=== PATIENT | female | born 1945 | race Caucasian/White ===

== ENCOUNTER → 2024-01-19 09:54 | Outpatient (REF) | payer MEDICARE, SELFPAY ==
[2024-01-19 12:58] LABS: ALT (SGPT) 18 U/L (0-35); AST (SGOT) 27 U/L (14-36); Albumin 4.3 g/dl (3.5-5.0); Alkaline Phosphatase 118 U/L (38-126); Blood Urea Nitrogen 21 mg/dl (7-17); Calcium 9.6 mg/dl (8.4-10.2); Carbon Dioxide 30 mmol/L (22-30); Chloride 101 mmol/L (98-107); Glucose 91 mg/dl (70-99); Potassium 3.7 mmol/L (3.5-5.1); Sodium 138 mmol/L (135-145); Total Bilirubin 0.5 mg/dl (0.2-1.3); Total Protein 7.3 g/dl (6.3-8.2); eGFR > 60.00
[2024-01-19 13:16] LABS: Free T4 1.07 ng/dl (0.78-2.19)
[2024-01-19 13:30] LABS: TSH 1.37 uIU/ml (0.47-4.68)
== END ==
LOC: HWLAB 09:54
PROVIDERS: ATTENDING PHYSICIAN Internal Medicine Endocrinology, Diabetes & Metabolism; FAMILY PHYSICIAN Internal Medicine
DX: E03.9 Hypothyroidism, unspecified (principal); M85.80 Other specified disorders of bone density and structure, unspecified site
CPT/HCPCS: 36415; 80053; 84439; 84443

== ENCOUNTER → 2024-04-28 08:28 | Outpatient (REF) | payer MEDICARE, SELFPAY ==
[2024-04-28 12:49] LABS: % Basophils 1.1 % (0-2); % Eosinophils 2.5 % (0-6); % Immature Granulocytes 0.2 % (0-0.5); % Lymphocytes 41.8 % (20.5-51.1); % Monocytes 6.8 % (1.7-9.3); % Neutrophils 47.6 % (42.2-75.2); Absolute Basophils 0.1 10^3/uL (0-0.2); Absolute Eosinophils 0.1 10^3/uL (0-0.7); Absolute Lymphocytes 2.4 10^3/uL (1.2-3.4); Absolute Monocytes 0.4 10^3/uL (0.1-0.6); Absolute Neutrophils 2.7 10^3/uL (1.4-6.5); Hematocrit 38.9 % (37.0-47.0); Mean Corp Hgb Conc. 33.4 g/dL (33.0-37.0); Mean Corpuscular Hgb 31.7 pg (27.0-31.0); Mean Corpuscular Volume 94.9 fL (81.0-99.0); Mean Platelet Volume 10.8 fL (7.4-10.4); Nucleated Red Blood Cells % 0 %; Platelet Count 320 10^3/uL (130-400); Red Cell Dist. Width 13.2 % (11.5-14.5); Urine Albumin Negative (Neg - Trace); Urine Bilirubin Negative (Negative); Urine Character Clear (Clear); Urine Color Yellow; Urine Glucose Negative (Negative); Urine Ketone Negative (Negative); Urine Leukocyte Trace (Negative); Urine Nitrite Negative (Negative); Urine Occult Blood Negative (Negative); Urine Urobilinogen Negative (Neg - 1+); White Blood Cell Count 5.7 10^3/uL (4.8-10.8)
[2024-04-28 13:18] LABS: ALT (SGPT) 19 U/L (0-35); AST (SGOT) 29 U/L (14-36); Albumin 4.4 g/dl (3.5-5.0); Alkaline Phosphatase 114 U/L (38-126); Blood Urea Nitrogen 23 mg/dl (7-17); Calcium 9.7 mg/dl (8.4-10.2); Carbon Dioxide 33 mmol/L (22-30); Chloride 100 mmol/L (98-107); Glucose 93 mg/dl (70-99); HDL Cholesterol 103 mg/dl; LDL Cholesterol, Calculated 112 mg/dl; Potassium 3.8 mmol/L (3.5-5.1); Sodium 141 mmol/L (135-145); Total Bilirubin 0.6 mg/dl (0.2-1.3); Total Cholesterol 227 mg/dl (50-199); Total Protein 7.4 g/dl (6.3-8.2); Triglyceride 64 mg/dl (10-149); Very Low Density Lipoprotein 12 mg/dl (0-30); eGFR > 60.00
[2024-04-28 13:23] LABS: Urine Squamous Cell 21-25 /LPF (Few)
[2024-04-28 13:24] LABS: Urine Bacteria Few (Negative); Urine Red Blood Cell 0-2 /HPF (0-2); Urine White Cell 0-2 /HPF (0-5)
[2024-04-28 13:48] LABS: TSH Reflex To Free T4 1.34 uIU/ml (0.47-4.68)
== END ==
LOC: HWLAB 08:28
PROVIDERS: ATTENDING PHYSICIAN Internal Medicine
DX: I10 Essential (primary) hypertension (principal); Z00.00 Encounter for general adult medical examination without abnormal findings; E78.2 Mixed hyperlipidemia; E03.9 Hypothyroidism, unspecified
CPT/HCPCS: 36415; 80053; 80061; 81003; 81015; 84443; 85025

== ENCOUNTER → 2024-08-02 01:00 | Outpatient (REF) | payer MEDICARE, SELFPAY ==
[2024-08-02 15:18] LABS: % Basophils 0.7 % (0-2); % Eosinophils 1.3 % (0-6); % Immature Granulocytes 0.1 % (0-0.5); % Lymphocytes 34.2 % (20.5-51.1); % Monocytes 5.4 % (1.7-9.3); % Neutrophils 58.3 % (42.2-75.2); Absolute Basophils 0.1 10^3/uL (0-0.2); Absolute Eosinophils 0.1 10^3/uL (0-0.7); Absolute Lymphocytes 2.6 10^3/uL (1.2-3.4); Absolute Monocytes 0.4 10^3/uL (0.1-0.6); Absolute Neutrophils 4.4 10^3/uL (1.4-6.5); Hematocrit 41.4 % (37.0-47.0); Hemoglobin 14.2 g/dL (12.0-16.0); Mean Corp Hgb Conc. 34.3 g/dL (33.0-37.0); Mean Corpuscular Hgb 33.3 pg (27.0-31.0); Mean Platelet Volume 10.9 fL (7.4-10.4); Nucleated Red Blood Cells % 0 %; Platelet Count 311 10^3/uL (130-400); Red Blood Cell Count 4.27 10^6/uL (4.20-5.40); Red Cell Dist. Width 13.1 % (11.5-14.5); White Blood Cell Count 7.6 10^3/uL (4.8-10.8)
[2024-08-02 15:34] LABS: Urine Albumin Negative (Neg - Trace); Urine Bilirubin Negative (Negative); Urine Character Clear (Clear); Urine Color Yellow; Urine Glucose Negative (Negative); Urine Ketone Negative (Negative); Urine Leukocyte Negative (Negative); Urine Nitrite Negative (Negative); Urine Occult Blood Negative (Negative); Urine Urobilinogen Negative (Neg - 1+)
[2024-08-02 16:00] LABS: ALT (SGPT) 20 U/L (0-35); AST (SGOT) 27 U/L (14-36); Albumin 4.6 g/dl (3.5-5.0); Alkaline Phosphatase 112 U/L (38-126); Blood Urea Nitrogen 23 mg/dl (7-17); Calcium 9.8 mg/dl (8.4-10.2); Carbon Dioxide 36 mmol/L (22-30); Chloride 95 mmol/L (98-107); Glucose 72 mg/dl (70-99); Magnesium 2.3 mg/dl (1.6-2.3); Phosphorus 4.2 mg/dl (2.5-4.5); Potassium 4.1 mmol/L (3.5-5.1); Sodium 142 mmol/L (135-145); Total Bilirubin 0.5 mg/dl (0.2-1.3); Total Protein 7.4 g/dl (6.3-8.2); Uric Acid 3.4 mg/dl (2.5-6.2); eGFR > 60.00
[2024-08-02 16:03] LABS: Protein/creatinine Ratio 0.2; Urine Protein 11 mg/dl
[2024-08-02 16:16] LABS: Vitamin D, 25-OH*** 36.1 ng/mL (30-80)
[2024-08-04 12:13] LABS: Intact PTH 49.2 pg/ml (13.6-85.8)
== END ==
LOC: REG 01:00
PROVIDERS: ATTENDING PHYSICIAN Internal Medicine Nephrology; FAMILY PHYSICIAN Internal Medicine; REFERRING PHYSICIAN Urology
DX: N20.0 Calculus of kidney (principal); N25.81 Secondary hyperparathyroidism of renal origin; E55.9 Vitamin D deficiency, unspecified
CPT/HCPCS: 36415; 80053; 81003; 82306; 82570; 83735; 83970; 84100; 84156; 84550; 85025

== ENCOUNTER → 2024-09-21 13:42 | Outpatient (REF) | payer MEDICARE, SELFPAY | LOC: HWRAD 13:42 | PROVIDERS: ATTENDING PHYSICIAN Physician Assistant; FAMILY PHYSICIAN Internal Medicine | DX: M25.551 Pain in right hip (principal); M54.9 Dorsalgia, unspecified; M79.606 Pain in leg, unspecified; M79.661 Pain in right lower leg | CPT/HCPCS: 72114; 73523; 73552 ==

== ENCOUNTER → 2025-02-01 08:56 | Outpatient (REF) | payer MEDICARE, SELFPAY ==
[2025-02-01 13:03] LABS: ALT (SGPT) 18 U/L (0-35); AST (SGOT) 26 U/L (14-36); Albumin 4.6 g/dl (3.5-5.0); Alkaline Phosphatase 118 U/L (38-126); Blood Urea Nitrogen 19 mg/dl (7-17); Calcium 9.7 mg/dl (8.4-10.2); Carbon Dioxide 32 mmol/L (22-30); Chloride 101 mmol/L (98-107); Glucose 86 mg/dl (70-99); Potassium 3.7 mmol/L (3.5-5.1); Sodium 142 mmol/L (135-145); Total Bilirubin 0.6 mg/dl (0.2-1.3); Total Protein 7.5 g/dl (6.3-8.2); eGFR > 60.00
[2025-02-01 13:11] LABS: Intact PTH 66.9 pg/ml (13.6-85.8)
[2025-02-01 13:29] LABS: TSH 2.35 uIU/ml (0.47-4.68)
== END ==
LOC: HWLAB 08:56
PROVIDERS: ATTENDING PHYSICIAN Internal Medicine Endocrinology, Diabetes & Metabolism; FAMILY PHYSICIAN Internal Medicine
DX: E03.9 Hypothyroidism, unspecified (principal); M85.80 Other specified disorders of bone density and structure, unspecified site
CPT/HCPCS: 36415; 80053; 83970; 84439; 84443

== ENCOUNTER → 2025-05-12 08:39 | Outpatient (REF) | payer MEDICARE, SELFPAY ==
[2025-05-12 12:33] LABS: Hematocrit 40.2 % (37.0-47.0); Hemoglobin 13.2 g/dL (12.0-16.0); Mean Corp Hgb Conc. 32.8 g/dL (33.0-37.0); Mean Corpuscular Volume 94.8 fL (81.0-99.0); Nucleated Red Blood Cells % 0 %; Platelet Count 373 10^3/uL (130-400); Red Cell Dist. Width 13.1 % (11.5-14.5)
[2025-05-12 12:38] LABS: Urine Character Clear (Clear)
[2025-05-12 12:41] LABS: ALT (SGPT) 18 U/L (0-35); AST (SGOT) 28 U/L (14-36); Albumin 4.4 g/dl (3.5-5.0); Alkaline Phosphatase 111 U/L (38-126); Blood Urea Nitrogen 23 mg/dl (7-17); Calcium 9.0 mg/dl (8.4-10.2); Carbon Dioxide 32 mmol/L (22-30); Chloride 104 mmol/L (98-107); Glucose 94 mg/dl (70-99); HDL Cholesterol 91 mg/dl; LDL Cholesterol, Calculated 127 mg/dl; Potassium 3.8 mmol/L (3.5-5.1); Sodium 141 mmol/L (135-145); Total Protein 7.7 g/dl (6.3-8.2); Very Low Density Lipoprotein 16 mg/dl (0-30); eGFR > 60.00
[2025-05-12 13:06] LABS: Urine Squamous Cell >30 /LPF (Few)
[2025-05-12 13:07] LABS: Urine Red Blood Cell 0-2 /HPF (0-2)
[2025-05-12 13:12] LABS: TSH 1.72 uIU/ml (0.47-4.68)
== END ==
LOC: HWLAB 08:39
PROVIDERS: ATTENDING PHYSICIAN Internal Medicine
DX: E78.2 Mixed hyperlipidemia (principal); I10 Essential (primary) hypertension; E03.9 Hypothyroidism, unspecified; E21.3 Hyperparathyroidism, unspecified
CPT/HCPCS: 36415; 80053; 80061; 81003; 81015; 84439; 84443; 85025

== ENCOUNTER → 2025-10-06 13:52 | Outpatient (REF) | payer MEDICARE, SELFPAY | LOC: HWRAD 13:52 | PROVIDERS: ATTENDING PHYSICIAN Obstetrics & Gynecology Gynecology; FAMILY PHYSICIAN Internal Medicine; REFERRING PHYSICIAN Urology | DX: N95.0 Postmenopausal bleeding (principal) | CPT/HCPCS: 76830; 76856 ==